=== PATIENT | female | born 1990 | race Two or more races ===

== ENCOUNTER 2025-04-12 03:57 | Inpatient (IN) | payer MEDICAID, OTHER ==
[2025-04-12] VITALS (7 sets, daily range): BP systolic 127–155; BP diastolic 76–94; PULSE 60–66; RESP 16–20; TEMP 97.6–98.8; O2SAT 93–100
[~2025-04-12] VITALS: Ht 160 cm; Wt 99.0 kg
--- NOTE | 2025-04-12 04:46 | ED.PDOC ---
GI ASSESSMENT HPI Comments 34-year-old female with a history of self-diagnosed gastritis brought in by family complaining of epigastric burning pain for the past 2 months, worse since 2:00 a.m. today, associated with nausea and vomiting. She denies any diarrhea, constipation or urinary symptoms. Patient states she has been taking omeprazole without relief. Chief Complaint: Abdominal Pain Time Seen by MD: 04:45 Reviewed Notes: Nurses Notes Allergies: Coded Allergies: NO KNOWN ALLERGIES (Unverified , 04/12/25) Home Meds Active Scripts Hydrocodone-Acetaminophen (Hydrocodone Bitartrate/AC 5-325 mg) 1 Tab Tab, 1 TAB PO Q6HP PRN, #20 TAB Prov:STANLEY BENNETT MD 04/12/25 Ondansetron Odt 4MG Tab (ZOFRAN PO) 4 Mg Tb, 4 MG PO TID PRN, #30 TAB ODT TAB-DISSOLVE IN MOUTH, THEN SWALLOW Prov:STANLEY BENNETT MD 04/12/25 Omeprazole Magnesium (Omeprazole) 20 Mg Tab, 20 MG PO DAILY, #30 TAB Prov:STANLEY BENNETT MD 04/12/25 Information Source: Patient Mode of Arrival: Ambulatory Timing: Months Duration: Intermittent Quality: Burning, Sharp Vomitus: Watery Stool: Normal Severity: Moderate Recent: None Recent Hx of: None Pain Location: Epigastric Associated sign and symptoms: Nausea, Vomiting, Abdominal Pain Past Medical History Past Medical History (Other): Possible gastritis Surgical History: Denies all surgeries [employer] INSURANCE History: Denies all [employer]URANCE Hx Family History Family History: Reviewed,noncontributory to illness Social History Smoker: Non-Smoker Alcohol: Denies ETOH Use Drugs: Denies Drug Use Lives In: Home Constitutional: denies: chills, diaphoresis, fatigue, fever, malaise, sweats, weakness, others EENTM: denies: blurred vision, double vision, ear bleeding, ear discharge, ear drainage, ear pain, ear ringing, eye pain, eye redness, hearing loss, mouth pain, mouth swelling, nasal discharge, nose bleeding, nose congestion, nose pain, photophobia, tearing, throat pain, throat swelling, voice changes, others Respiratory: denies: cough, hemoptysis, orthopnea, SOB at rest, shortness of breath, SOB with excertion, stridor, wheezing, others Cardiovascular: denies: chest pain, dizzy spells, diaphoresis, Dyspnea on exertion, edema, irregular heart beat, left arm pain, lightheadedness, palpitations, PND, syncope, others Gastrointestinal: reports: abdominal pain, nausea, vomiting; denies: abdomen distended, blood streaked bowels, constipated, diarrhea, dysphagia, difficulty swallowing, hematemesis, melena, poor appetite, poor fluid intake, rectal bleeding, rectal pain, others Genitourinary: denies: abnormal vagina bleeding, burning, dyspareunia, dysuria, flank pain, frequency, hematuria, incontinence, pain, , vagina discharge, urgency, others Neurological: denies: dizziness, fainting, headache, left sided numbness, left sided weakness, numbness, paresthesia, pre-existing deficit, right sided numbness, right sided weakness, seizure, speech problems, tingling, tremors, weakness, others Musculoskeletal: denies: back pain, gout, joint pain, joint swelling, muscle pain, muscle stiffness, neck pain, others Integumetry: denies: bruises, change in color, change in hair/nails, dryness, laceration, lesions, lumps, rash, wounds, others Allergic/Immunocompromised: denies: Difficulty Healing, Frequent Infections, Hives, Itching, others Hematologic/Lymphatic: denies: anemia, blood clots, easy bleeding, easy bruising, swollen glands, others Endocrine: denies: excessive hunger, excessive sweating, excessive thirst, excessive urination, flushing, intolerance to cold, intolerance to heat, unexplained weight gain, unexplained weight loss, others Psychiatric: denies: anxiety, bipolar disorder, depression, hopeless, panic disorder, schizophrenia, sleepless, suicidal, others Physical Exam General Appearance: Moderate Distress, Obese HEENT: Other (Pupils and face symmetric. Moist mucous membranes.) Neck: Full Range of Motion, Normal Inspection Respiratory: Lungs Clear, No Accessory Muscle Use, No Respiratory Distress, Normal Breath Sounds Cardiovascular: No Edema, No JVD, Regular Rate/Rhythm Breast Exam: Deferred Gastrointestinal: Epigastric, Soft, Tenderness Genitalia: Deferred Pelvic: Deferred Rectal: Deferred Extremities: Normal inspection, Normal range of motion, Non-tender, No pedal edema Neurologic: Alert (Oriented x4), Normal Affect, Normal Mood, Other (Ambulatory) Cerebellar Function: NOT DONE Reflexes: NOT DONE Skin: Dry, Normal Color, Warm Lymphatic: NOT DONE Was a procedure done? Was a procedure done?: No GI differential Dx Differential Diagnosis: Cholecystitis, Constipation, Diverticular disease, Gastritis/PUD, Gastroenteritis, Pancreatitis, UTI, Urolithiasis, Dehydration, Electrolyte Imbalance, Food Poisoning, , Bacterial, Viral, Anemia, Stress Ulcer, Kidney Stone X-Ray, Labs, Meds, VS Vital Signs Date Time Temp Pulse Resp B/P (MAP) Pulse Ox O2 Delivery O2 Flow Rate FiO2 04/12/25 06:03 175/87 04/12/25 06:00 60 22 175/87 (116) 100 04/12/25 05:08 92 24 126/78 04/12/25 04:25 98.0 70 22 150/69 (96) 99 98.0 Lab Test 04/12/25 04:29 04/12/25 04:15 Range/Units POC Glucose 168 H 70-106 mg/dl White Blood Count 13.3 H 4.4-10.8 10^3/uL Red Blood Count 4.71 4.0-5.20 10^6/uL Hemoglobin 14.3 12.2-16.2 g/dL Hematocrit 42.2 36.0-46.0 % Mean Corpuscular Volume 89.5 80.0-100.0 fL Mean Corpuscular Hemoglobin 30.5 28.0-32.0 pg Mean Corpuscular Hemoglobin Concent 34.0 32.0-36.0 g/dL Red Cell Distribution Width 13.0 11.8-14.3 % Platelet Count 361 140-450 10^3/uL Mean Platelet Volume 9.3 6.9-10.8 fL Neutrophils (%) (Auto) 63.6 37.0-80.0 % Lymphocytes (%) (Auto) 29.0 10.0-50.0 % Monocytes (%) (Auto) 6.6 0.0-12.0 % Eosinophils (%) (Auto) 0.5 0.0-7.0 % Basophils (%) (Auto) 0.3 0.0-2.0 % Neutrophils # (Auto) 8.4 1.6-8.6 10 ^3/uL Lymphocytes # (Auto) 3.8 0.4-5.4 10 ^3/uL Monocytes # (Auto) 0.9 0-1.3 10 ^3/uL Eosinophils # (Auto) 0.1 0-0.8 10 ^3/uL Basophils # (Auto) 0 0-0.2 10 ^3/uL Nucleated Red Blood Cells 0.1 % Sodium Level 141 136-145 mmol/L Potassium Level 3.0 L 3.5-5.1 mmol/L Chloride Level 106 98-107 mmol/L Carbon Dioxide Level 18 L 20-31 mmol/L Anion Gap 17 H 5-15 Blood Urea Nitrogen 8 L 9-23 mg/dL Creatinine 0.66 0.550-1.02 mg/dL Glomerular Filtration Rate Calc 117 >90 mL/min BUN/Creatinine Ratio 12.1 10.0-20.0 Serum Glucose 152 H 74-106 mg/dL Calcium Level 9.0 8.7-10.4 mg/dL Total Bilirubin 0.5 0.2-1.0 mg/dL Aspartate Amino Transferase (AST) 26 13-40 U/L Alanine Aminotransferase (ALT) 40 7-40 U/L Alkaline Phosphatase 87 46-116 U/L Total Protein 7.7 5.7-8.2 g/dL Albumin 4.3 3.2-4.8 g/dL Lipase 36 12-53 U/L Current Medications Medications (Trade) Dose Ordered Sig/Baudilio Route Start Time Stop Time Status Last Admin Sodium Chloride 2,000 ml @ 1,000 mls/hr Q2H ONCE IV 04/12/25 04:30 04/12/25 06:29 DC 04/12/25 05:09 Ondansetron HCl (Zofran) 4 mg ONCE ONCE IV 04/12/25 04:30 04/12/25 04:31 DC 04/12/25 05:08 Morphine Sulfate 4 mg ONCE ONCE IV 04/12/25 04:30 04/12/25 04:31 DC 04/12/25 05:08 Pantoprazole Sodium (Protonix) 40 mg ONCE ONCE IV 04/12/25 04:30 04/12/25 04:31 DC 04/12/25 05:08 Fentanyl Citrate 25 mcg ONCE ONCE IV 04/12/25 05:45 04/12/25 05:46 DC 04/12/25 06:03 PROCEDURE(s): ABPL - CT AB PEL WO CON-NO ORAL OR IV REASON: abd pain ORDER NUMBER(s): [id number], ACCESSION NUMBER(s): [id number] Exam: CT CT AB PEL WO CON-NO ORAL OR IV History: abd pain Comparison Study: None Technique: Multidetector spiral CT of the abdomen was performed from lung bases to pubic symphysis. Imaging was performed without IV contrast. Axial, coronal and sagittal multiplanar reformats were obtained from the axial data set by the technologist. Radiation Dose : 1. Abdomen/Pelvis: CTDIvol 24 mGy, DLP 1516 mGy*cm. Findings: Evaluation of solid organs is limited due to lack of intravenous contrast use. Lung Bases: No acute or significant lung base finding. Normal heart size. No pleural or pericardial effusion. Liver: Hepatic steatosis. Hepatomegaly. Gallbladder and Biliary Tree: Cholelithiasis noted without secondary findings of cholecystitis or biliary obstruction. Spleen: Unremarkable Pancreas: The pancreas is grossly normal in appearance. Adrenal Glands: Unremarkable Kidneys: No hydronephrosis. Bilateral punctate nonobstructing renal stones measuring up to 0.3 cm in the left lower pole. Bladder: Grossly unremarkable for degree of distention. Bowel: The stomach is grossly normal in appearance. Mild diffuse colonic bowel wall thickening. The appendix is not visualized; however, no secondary findings of acute appendicitis identified. Ascites: Absent Lymphadenopathy: No mesenteric, retroperitoneal or periportal lymphadenopathy. Abdominal Wall and Mesentery: Unremarkable. Vasculature: The visualized abdominal aorta is normal in size and caliber. Evaluation of abdominal and pelvic vessels is limited due to lack of intravenous contrast. Pelvic Organs: Intrauterine device in satisfactory position. Musculoskeletal: No aggressive focal bony lesions, acute fractures or dislocation. IMPRESSION: Cholelithiasis noted without secondary findings of cholecystitis or biliary obstruction.No hydronephrosis. Bilateral punctate nonobstructing renal stones measuring up to 0.3 cm in the left lower pole. Hepatic steatosis and hepatomegaly. Mild diffuse colonic bowel wall thickening. This may be related to underdistention of bowel loops versus mild colitis. Radiation optimization: All CT scans at this facility use at least one of these dose optimization techniques: automated exposure control mA and/or kV adjustment per patient size (includes targeted exams where dose is matched to clinical indication) or iterative reconstruction. X-Ray, Labs, Meds, VS Comment 34-year-old female with self diagnosed history of gastritis complaining of epigastric pain, nausea and vomiting Vitals remarkable for respiratory rate 22, BP 150/69 Exam remarkable for epigastric tenderness to palpation and moderate distress Rhythm strip independently interpreted by me: Sinus rhythm, rate 70, no ectopy. CT abdomen and pelvis IMPRESSION: Cholelithiasis noted without secondary findings of cholecystitis or biliary obstruction.No hydronephrosis. Bilateral punctate nonobstructing renal stones measuring up to 0.3 cm in the left lower pole. Hepatic steatosis and hepatomegaly. Mild diffuse colonic bowel wall thickening. This may be related to un derdistention of bowel loops versus mild colitis. CBC remarkable for WBC 13.3, CMP remarkable for potassium 3, CO2 18, UA Patient treated with the following in the ED: 2 L 0.9 normal saline IV bolus, morphine 4 mg IV, Zofran 4 mg IV, Protonix 40 mg IV, fentanyl 25 mcg IV, Zosyn 4.5 g IV On re-evaluation, patient states pain had not improved after 4 of morphine IV. Fentanyl IV was ordered. Vitals were stable. Plan is to admit the patient for pain control and IV antibiotics. Time of 1ST Reevaluation: 04:42 Reevaluation 1ST: Unchanged Patient Education/Counseling: Diagnosis, Treatment Family Education/Counseling: Diagnosis, Treatment SEPSIS Sepsis Screen SEPSIS EXCLUSION NOTE: Sepsis Exclusion Note: Patient presents with SIRS criteria, but the SIRS response is attributed to [severe pain ], not a suspected infection. Sepsis bundle is not initiated at this time, due to this reason. Further management will focus on the treatment of the above condition (s). Physician Orders Urinalysis (04/12/25 04:09) Test, Urine (04/12/25 04:09) Ct Ab Pel Wo Con-No Oral Or Iv (04/12/25 04:09) Piperacillin-Tazo 4.5gm (Zosyn 4.5gm/100 (04/12/25 07:00) Potassium Effervesent Tab (Klor-Con/Ef) (04/12/25 07:00) Vital Signs Date Time Temp Pulse Resp B/P (MAP) Pulse Ox O2 Delivery O2 Flow Rate FiO2 04/12/25 06:03 175/87 04/12/25 06:00 60 22 175/87 (116) 100 04/12/25 05:08 92 24 126/78 04/12/25 04:25 98.0 70 22 150/69 (96) 99 98.0 Laboratory Tests Test 04/12/25 04:15 White Blood Count 13.3 10^3/uL (4.4-10.8) H Medications Medications Dose Ordered Sig/Baudilio Route Start Time Stop Time Status Last Admin Dose Admin Fentanyl Citrate 25 mcg ONCE ONCE IV 04/12/25 05:45 04/12/25 05:46 DC 04/12/25 06:03 Morphine Sulfate 4 mg ONCE ONCE IV 04/12/25 04:30 04/12/25 04:31 DC 04/12/25 05:08 Ondansetron HCl 4 mg ONCE ONCE IV 04/12/25 04:30 04/12/25 04:31 DC 04/12/25 05:08 Pantoprazole Sodium 40 mg ONCE ONCE IV 04/12/25 04:30 04/12/25 04:31 DC 04/12/25 05:08 Sodium Chloride 2,000 ml @ 1,000 mls/hr Q2H ONCE IV 04/12/25 04:30 04/12/25 06:29 DC 04/12/25 05:09 Departure 1 Departure Time of Disposition: 06:00 Impression: Primary Impression: Abdominal pain Additional Impression: Colitis Disposition: ADMITTED INPATIENT Admit to: Med Surg Condition: Guarded Referrals: CARLIE TEJEDA MD Additional Instructions: Your blood tests were unremarkable. Your CT scan was unremarkable. I have pre scribed medication for your symptoms. Follow-up with your primary doctor in 1-2 days for referral to a chemical laboratory scientist for further evaluation of your symptoms. Alternatively, follow-up directly with Dr. Crystal Tejeda. e-Prescriptions Hydrocodone-Acetaminophen (Hydrocodone Bitartrate/AC 5-325 mg) 1 Tab Tab 1 TAB PO Q6HP PRN, #20 TAB Prov: STANLEY BENNETT MD 04/12/25 Ondansetron Odt 4MG Tab (ZOFRAN PO) 4 Mg Tb 4 MG PO TID PRN, #30 TAB ODT TAB-DISSOLVE IN MOUTH, THEN SWALLOW Prov: STANLEY BENNETT MD 04/12/25 Omeprazole Magnesium (Omeprazole) 20 Mg Tab 20 MG PO DAILY, #30 TAB Prov: STANLEY BENNETT MD 04/12/25 Discharged With: Spouse Critical Care Note Critical Care Time?: No Stability Stability form required: No Heart Score Heart Score: Heart Score Response (Comments) Value History N/A 0 EKG N/A 0 Age N/A 0 Risk Factors N/A 0 Troponin N/A 0 Total 0 I personally scribed for STANLEY BENNETT MD ([email or web address]) on 04/12/25 at 04:46. Electronically submitted by Alexander Britt ([facility]). STANLEY BENNETT MD Apr 12, 2025 04:46
[2025-04-12 04:53] LABS: Albumin 4.3 g/dL (3.2-4.8); Alkaline Phosphatase 87 U/L (46-116); Anion Gap 17 (5-15); BUN/Creatinine Ratio 12.1 (10.0-20.0); Calcium 9.0 mg/dL (8.7-10.4); Chloride 106 mmol/L (98-107); Lipase 36 U/L (12-53); Sodium 141 mmol/L (136-145); Total Protein 7.7 g/dL (5.7-8.2)
[2025-04-12 04:54] LABS: Bilirubin, Total 0.5 mg/dL (0.2-1.0)
[2025-04-12 05:03] LABS: Alanine Aminotransferase 40 U/L (7-40); Blood Urea Nitrogen 8 mg/dL (9-23); Carbon Dioxide 18 mmol/L (20-31); Glucose 152 mg/dL (74-106); Potassium 3.0 mmol/L (3.5-5.1)
[2025-04-12] MEDS: ONDANSETRON HCL 4 MG/2 ML VIAL IV ONE (05:08)
[2025-04-12] MEDS: PANTOPRAZOLE 40 MG/10 ML VIAL INJ IV ONE (05:08)
[2025-04-12] MEDS: MORPHINE SULFATE 4 MG/ML SYR/VIAL IV ONE (05:08)
[2025-04-12] MEDS: SODIUM CHLORIDE 0.9% 2,000 ML IV ONE (05:09)
[2025-04-12 05:42] LABS: Hematocrit 42.2 % (36.0-46.0); Hemoglobin 14.3 g/dL (12.2-16.2); Mean Corpuscular Hemoglobin 30.5 pg (28.0-32.0); Mean Corpuscular Volume 89.5 fL (80.0-100.0); Nucleated Red Blood Cells % 0.1 %
[2025-04-12] MEDS ORDERED: OMEP-434 PO (05:52)
[2025-04-12] MEDS ORDERED: HYDR-4902 PO (05:52)
[2025-04-12] MEDS ORDERED: ZOFR4T PO (05:52)
[2025-04-12] MEDS: fentaNYL CITRATE 100 MCG/2 ML VL IV ONE (06:03)
--- NOTE | 2025-04-12 06:13 | DVH ---
Exam: CT CT AB PEL WO CON-NO ORAL OR IV History: abd pain Comparison Study: None Technique: Multidetector spiral CT of the abdomen was performed from lung bases to pubic symphysis. I maging was performed without IV contrast. Axial, coronal and sagittal multiplanar reformats were obta ined from the axial data set by the technologist. Radiation Dose : 1. Abdomen/Pelvis: CTDIvol 24 mGy, DLP 1516 mGy*cm. Findings: Evaluation of solid organs is limited due to lack of intravenous contrast use. Lung Bases: No acute or significant lung base finding. Normal heart size. No pleural or pericardial effusion. Liver: Hepatic steatosis. Hepatomegaly. Gallbladder and Biliary Tree: Cholelithiasis noted without secondary findings of cholecystitis or sarita iary obstruction. Spleen: Unremarkable Pancreas: The pancreas is grossly normal in appearance. Adrenal Glands: Unremarkable Kidneys: No hydronephrosis. Bilateral punctate nonobstructing renal stones measuring up to 0.3 cm in the left lower pole. Bladder: Grossly unremarkable for degree of distention. Bowel: The stomach is grossly normal in appearance. Mild diffuse colonic bowel wall thickening. The a ppendix is not visualized; however, no secondary findings of acute appendicitis identified. Ascites: Absent Lymphadenopathy: No mesenteric, retroperitoneal or periportal lymphadenopathy. Abdominal Wall and Mesentery: Unremarkable. Vasculature: The visualized abdominal aorta is normal in size and caliber. Evaluation of abdominal a nd pelvic vessels is limited due to lack of intravenous contrast. Pelvic Organs: Intrauterine device in satisfactory position. Musculoskeletal: No aggressive focal bony lesions, acute fractures or dislocation. IMPRESSION: Cholelithiasis noted without secondary findings of cholecystitis or biliary obstruction.No hydronephr osis. Bilateral punctate nonobstructing renal stones measuring up to 0.3 cm in the left lower pole. Hepatic steatosis and hepatomegaly. Mild diffuse colonic bowel wall thickening. This may be related to underdistention of bowel loops ve rsus mild colitis. Radiation optimization: All CT scans at this facility use at least one of these dose optimization naz hniques: automated exposure control mA and/or kV adjustment per patient size (includes targeted exam s where dose is matched to clinical indication) or iterative reconstruction.
[2025-04-12] MEDS: POTASSIUM EFFERVESENT TAB 25 MEQ PO ONE (07:00)
[2025-04-12] MEDS ORDERED: PIPERACILLIN-TAZO 4.5GM 100 ML IV ONE ×2 (07:00→07:15)
[2025-04-12] MEDS ORDERED: DOCUSATE SOD 100 MG CAP PO PRN (08:45)
[2025-04-12 09:02] LABS: Urine Protein, UAD Negative (Negative)
--- NOTE | 2025-04-12 09:25 | DVHHP2 ---
History of Present Illness Reason for Visit: Acute abdominal pain History of Present Illness The patient is a 34-year-old female with past medical history of gastritis who presented to [facility] ED with complaint of acute abdominal pain. Patient reports she has been experiencing epigastric abdominal pain, associated burning sensation for the past 2 months, nausea, vomiting, getting worse today that prompted this visit. Patient was seen and evaluated in the ED, laboratory data shows WBC 13.3, platelets 361, sodium 141, potassium 3.0, BUN 8, creatinine 0.66, glucose 152, calcium 9.0, lipase 36, blood pressure 159/92, heart rate 56, temperature 97.9 F, O2 saturation 99% on room. Abdomen/pelvis CT revealing cholelithiasis noted without secondary findings of cholecystitis or biliary obstruction, no hydronephrosis; noted bilateral punctate nonobstructing renal stones measuring up to 0.3 cm in the left lower pole, hepatic steatosis and hepatomegaly, mild diffuse colonic bowel wall thickening, this may be related to underdistention of bowel loops versus mild colitis. Patient was started on IV antibiotic regimen Flagyl, please see medication orders section in the computer. On my assessment, patient denies chest pain, no dizziness, no headache, no diaphoresis, no shortness of breath, no nausea, no vomiting, no fever, no chills. Patient was admitted for further evaluation and medical management. Past Medical History Gastritis Past Surgical History Denies all surgeries Family History Reviewed, noncontributory to the management of this case. Past Social History The patient lives at home, denies smoking, alcohol or illicit drugs abuse. Review of Systems Constitutional: No: Fever, Chills, Sweats, Weakness, Malaise, Other Eyes: No: Pain, Vision change, Conjunctivae inflammation, Eyelid inflammation, Other, Redness ENT: No: Ear pain, Ear discharge, Nose pain, Nose discharge, Nose congestion, Mouth pain, Mouth swelling, Throat pain, Throat swelling, Other Respiratory: No: Cough, Dry, Shortness of breath, SOB with excertion, Wheezing, Hemoptysis, Pleuritic Pain, Sputum, Wheezing, Other Cardiovascular: No: Chest Pain, Palpitations, Orthopnea, Paroxysmal Noc. Dyspnea, Edema, Lt Headedness, Other Gastrointestinal: Nausea, Vomiting, Abdominal Pain; No: Diarrhea, Constipation, Melena, Hematochezia, Other Genitourinary: No Dysuria, No Frequency, No Incontinence, No Hematuria, No Retention, No Other Musculoskeletal: No: other, neck pain, shoulder pain, arm pain, back pain, hand pain, leg pain, foot pain Skin: No: Rash, Lesions, Jaundice, Bruising, Other Neurological: No: Weakness, Numbness, Incoordination, Change in speech, Confusion, Seizures, Other Allergies: Coded Allergies: NO KNOWN ALLERGIES (Unverified , 04/12/25) Medications Current Medications Medications Dose Ordered Sig/Baudilio Route Start Time Stop Time Status Last Admin Dose Admin Pantoprazole Sodium 40 mg DAILY IV 04/12/25 10:00 UNV Ceftriaxone Sodium 50 ml @ 100 mls/hr DAILY@09 IV 04/12/25 09:00 UNV Metronidazole 100 ml @ 100 mls/hr Q8HR IV 04/12/25 14:00 UNV Sodium Chloride 10 ml Q8HR IV 04/12/25 14:00 UNV Acetaminophen/ Hydrocodone Bitart 1 tab Q4HP PRN PO 04/12/25 08:45 UNV Ondansetron HCl 4 mg Q4HP PRN IV 04/12/25 08:45 UNV Docusate Sodium 100 mg BIDPRN PRN PO 04/12/25 08:45 UNV Acetaminophen 650 mg Q6HP PRN PO 04/12/25 08:45 UNV Morphine Sulfate 2 mg Q4HPRN PRN IV 04/12/25 08:45 UNV Exam Vital Signs Vital Signs Date Time Temp Pulse Resp B/P (MAP) Pulse Ox O2 Delivery O2 Flow Rate FiO2 04/12/25 07:08 97.9 56 12 159/92 (114) 100 97.9 General Appearance: Alert, Oriented X3, Cooperative, No acute distress HEENT: Atraumatic, PERRLA, EOMI, Mucous membr. moist/pink Respiratory: Normal air movement Cardiovascular: Regular rate, Normal S1, Normal S2, No murmurs Abdominal: Normal bowel sounds, Soft, No tenderness, No hepatospenomegaly, No masses Extremities: No clubbing, No cyanosis, No edema, Normal pulses, No tenderness/swelling Skin: No rashes, No breakdown, No significant lesion Neuro: Normal gait, Normal speech, Strength at 5/5 X4 ext, Normal tone, Sensation intact, Cranial nerves 3-12 NL, Reflexes 2+ Psych/Mental Status: Mental status NL, Mood NL Labs/Xrays Labs Test 04/12/25 07:25 04/12/25 04:29 04/12/25 04:15 Range/Units Urine Color Colorless Yellow Urine Clarity Clear Clear Urine pH 7.0 5.0-9.0 Urine Specific [place] 1.013 1.001-1.035 Urine Protein Negative Negative Urine Ketones 3+ H Negative Urine Blood Negative Negative /uL Urine Nitrite Negative Negative Urine Bilirubin Negative Negative Urine Urobilinogen Normal Negative mg/dL Urine Leukocyte Esterase Negative Negative /uL Urine RBC 3 0 - 4 /hpf Urine Microscopic WBC 3 0-5 /HPF Urine Squamous Epithelial Cells Few <5 /hpf Urine Bacteria None seen None Seen /hpf Urine Glucose 3+ H Normal mg/dL Urine Test Negative Negative POC Glucose 168 H 70-106 mg/dl White Blood Count 13.3 H 4.4-10.8 10^3/uL Red Blood Count 4.71 4.0-5.20 10^6/uL Hemoglobin 14.3 12.2-16.2 g/dL Hematocrit 42.2 36.0-46.0 % Mean Corpuscular Volume 89.5 80.0-100.0 fL Mean Corpuscular Hemoglobin 30.5 28.0-32.0 pg Mean Corpuscular Hemoglobin Concent 34.0 32.0-36.0 g/dL Red Cell Distribution Width 13.0 11.8-14.3 % Platelet Count 361 140-450 10^3/uL Mean Platelet Volume 9.3 6.9-10.8 fL Neutrophils (%) (Auto) 63.6 37.0-80.0 % Lymphocytes (%) (Auto) 29.0 10.0-50.0 % Monocytes (%) (Auto) 6.6 0.0-12.0 % Eosinophils (%) (Auto) 0.5 0.0-7.0 % Basophils (%) (Auto) 0.3 0.0-2.0 % Neutrophils # (Auto) 8.4 1.6-8.6 10 ^3/uL Lymphocytes # (Auto) 3.8 0.4-5.4 10 ^3/uL Monocytes # (Auto) 0.9 0-1.3 10 ^3/uL Eosinophils # (Auto) 0.1 0-0.8 10 ^3/uL Basophils # (Auto) 0 0-0.2 10 ^3/uL Nucleated Red Blood Cells 0.1 % Sodium Level 141 136-145 mmol/L Potassium Level 3.0 L 3.5-5.1 mmol/L Chloride Level 106 98-107 mmol/L Carbon Dioxide Level 18 L 20-31 mmol/L Anion Gap 17 H 5-15 Blood Urea Nitrogen 8 L 9-23 mg/dL Creatinine 0.66 0.550-1.02 mg/dL Glomerular Filtration Rate Calc 117 >90 mL/min BUN/Creatinine Ratio 12.1 10.0-20.0 Serum Glucose 152 H 74-106 mg/dL Hemoglobin A1c 5.3 <5.7 % A1C Calcium Level 9.0 8.7-10.4 mg/dL Total Bilirubin 0.5 0.2-1.0 mg/dL Aspartate Amino Transferase (AST) 26 13-40 U/L Alanine Aminotransferase (ALT) 40 7-40 U/L Alkaline Phosphatase 87 46-116 U/L Total Protein 7.7 5.7-8.2 g/dL Albumin 4.3 3.2-4.8 g/dL Lipase 36 12-53 U/L PATIENT: JEAN JONESACCT: [id number] UNIT: [id number] : 1990 LOC: ER ROOM / BED: / AGE / SEX: 34 / F ADM STATUS: REG ER SERVICE [id number] ORDERING PHYSICIAN: STANLEY BENNETT MD PROCEDURE(s): ABPL - CT AB PEL WO CON-NO ORAL OR IV REASON: abd pain ORDER NUMBER(s): [id number], ACCESSION NUMBER(s): [id number] Exam: CT CT AB PEL WO CON-NO ORAL OR IV History: abd pain Comparison Study: None Technique: Multidetector spiral CT of the abdomen was performed from lung bases to pubic symphysis. Imaging was performed without IV contrast. Axial, coronal and sagittal multiplanar reformats were obtained from the axial data set by the technologist. Radiation Dose: 1. Abdomen/Pelvis: CTDIvol 24 mGy, DLP 1516 mGy*cm. Findings: Evaluation of solid organs is limited due to lack of intravenous contrast use. Lung Bases: No acute or significant lung base finding. Normal heart size. No pleural or pericardial effusion. Liver: Hepatic steatosis. Hepatomegaly. Gallbladder and Biliary Tree: Cholelithiasis noted without secondary findings of cholecystitis or biliary obstruction. Spleen: Unremarkable Pancreas: The pancreas is grossly normal in appearance. Adrenal Glands: Unremarkable Kidneys: No hydronephrosis. Bilateral punctate nonobstructing renal stones measuring up to 0.3 cm in the left lower pole. Bladder: Grossly unremarkable for degree of distention. Bowel: The stomach is grossly normal in appearance. Mild diffuse colonic bowel wall thickening. The appendix is not visualized; however, no secondary findings of acute appendicitis identified. Ascites: Absent Lymphadenopathy: No mesenteric, retroperitoneal or periportal lymphadenopathy. Abdominal Wall and Mesentery: Unremarkable. Vasculature: The visualized abdominal aorta is normal in size and caliber. Evaluation of abdominal and pelvic vessels is limited due to lack of intravenous contrast. Pelvic Organs: Intrauterine device in satisfactory position. Musculoskeletal: No aggressive focal bony lesions, acute fractures or dislocation. IMPRESSION: Cholelithiasis noted without secondary findings of cholecystitis or biliary obstruction.No hydronephrosis. Bilateral punctate nonobstructing renal stones me asuring up to 0.3 cm in the left lower pole. Hepatic steatosis and hepatomegaly. Mild diffuse colonic bowel wall thickening. This may be related to underdistention of bowel loops versus mild colitis. Assessment/Plan Assessment/Plan Acute abdominal pain Colitis Nausea and vomiting Hyperglycemia Hypokalemia Leukocytosis, unspecified Plan 1. Admit to med surge unit 2. Breathing treatment 3. Pain control management 4. IV antibiotic management 5. Management of fluids and electrolytes 6. Consultation for hospitalist 7. Diagnostic test abdomen/pelvis CT 8. DVT prophylaxis on SCDs 9. Repeat labs CBC, CMP in a.m. 10.Home medication reviewed and reconciled 11. Continue with current medical management 12. Treatment plan discussed with patient and RN. Patient verbalized understanding. Plan discussed with: Patient, Other (RN) My Orders Orders - GIL DE PAZ DNP Procedure Category Date Status Time Pantoprazole [facility] 04/12/25 Logged (Protonix) 10:00 Ceftriaxone 1gm/50ml [facility] 04/12/25 Logged D5w (Rocephin) 09:[address] [facility] 04/12/25 Logged 500mg/100ml (Flagyl 14:00 Allergies ASAEL 04/12/25 In Process 08:45 Code Status CODE 04/12/25 Transmitted 08:45 Sodium Chloride Lock PHA 04/12/25 Logged (Saline Lock Ns) 14:00 Oxygen Per Hour RT 04/12/25 Transmitted 08:45 Hydrocodone-Acet PHA 04/12/25 Logged 5/325mg Tab ([place] 08:45 Ondansetron Hcl PHA 04/12/25 Logged (Zofran) 08:45 Docusate Sodium PHA 04/12/25 Logged Capsule (Colace 08:45 Complete Blood Count LAB 04/13/25 Verified 04:00 Comprehensive LAB 04/13/25 Verified Metabolic Panel 04:00 Condition: Serious ASAEL 04/12/25 In Process 08:45 Acetaminophen Tablet PHA 04/12/25 Logged (Tylenol Tablet) 08:45 Clear Liq Diet DIET 04/12/25 Transmitted Breakfast Bedrest With Bathroom ASAEL 04/12/25 In Process Privileg 08:45 Morphine Sulfate PHA 04/12/25 Logged Injection 08:45 Sequential ASAEL 04/12/25 In Process Compression Device Problem List: (1) Acute abdominal pain (2) Colitis (3) Nausea and vomiting (4) Hyperglycemia (5) Hypokalemia (6) Leukocytosis, unspecified Date of Service: Apr 12, 2025 Billing Provider: GIL DE PAZ DNP Common Visit Codes: [id number] INP/OBS CARE (HIGH) GIL DE PAZ DNP Apr 12, 2025 09:25
[2025-04-12] MEDS ORDERED: MORPHINE SULFATE INJ 2 MG/ml SYRG IV PRN (09:30)
[2025-04-12] MEDS ORDERED: NITROGLYCERIN 0.4 MG SL TAB SL PRN (09:30)
[2025-04-12] MEDS: MORPHINE SULFATE INJ 2 MG/ml SYRG IV PRN (09:57)
[2025-04-12] MEDS: ONDANSETRON HCL 4 MG/2 ML VIAL IV PRN (09:57)
[2025-04-12] MEDS: PANTOPRAZOLE 40 MG/10 ML VIAL INJ IV SCH (11:50)
[2025-04-12] MEDS: cefTRIAXone 1GM/50ML D5W 50 ML IV SCH (11:50)
[2025-04-12] MEDS: HYDROcodone-ACET 5/325MG TAB PO PRN (12:28)
[2025-04-12] MEDS: SODIUM CHLOR 0.9% PF (SALINE LOCK) 10ML VIAL/SYR IV SCH (14:09)
[2025-04-12] MEDS: KETOROLAC TROMETH 30 MG/ML 1ML VIAL IV ONE (14:12)
[2025-04-12] MEDS: LIDOCAINE VISCOUS 2% 15ML UD PO ONE (14:12)
[2025-04-12] MEDS: MAALOX PLUS or MAALOX 30 ML PO ONE (14:12)
[2025-04-12 14:41] LABS: Albumin 4.7 g/dL (3.2-4.8); Alkaline Phosphatase 85 U/L (46-116); Anion Gap 14 (5-15); BUN/Creatinine Ratio 7.2 (10.0-20.0); Bilirubin, Total 0.6 mg/dL (0.2-1.0); Calcium 9.6 mg/dL (8.7-10.4); Chloride 107 mmol/L (98-107); Potassium 3.6 mmol/L (3.5-5.1); Sodium 139 mmol/L (136-145); Total Protein 7.8 g/dL (5.7-8.2)
[2025-04-12 14:51] LABS: Alanine Aminotransferase 40 U/L (7-40); Blood Urea Nitrogen 5 mg/dL (9-23); Carbon Dioxide 18 mmol/L (20-31); Glucose 128 mg/dL (74-106)
[2025-04-12] MEDS: PIPERACILLIN-TAZOB 3.375GM 100 ML IV ONE (15:49)
[2025-04-12] MEDS ORDERED: PIPERACILLIN-TAZOB 3.375GM 100 ML IV SCH (18:00)
[2025-04-12] MEDS: PIPERACILLIN-TAZOB 3.375GM 100 ML IV SCH (21:19)
[2025-04-13] VITALS (8 sets, daily range): BP systolic 134–163; BP diastolic 89–96; PULSE 59–79; RESP 16–20; TEMP 98.8–100.2; O2SAT 97–99
[2025-04-13 06:10] LABS: Hematocrit 39.7 % (36.0-46.0); Hemoglobin 13.8 g/dL (12.2-16.2); Mean Corpuscular Hemoglobin 30.7 pg (28.0-32.0); Mean Corpuscular Volume 88.5 fL (80.0-100.0); Nucleated Red Blood Cells % 0.0 %
[2025-04-13 06:28] LABS: Albumin 4.2 g/dL (3.2-4.8); Alkaline Phosphatase 83 U/L (46-116); Anion Gap 11 (5-15); BUN/Creatinine Ratio 8.1 (10.0-20.0); Calcium 9.2 mg/dL (8.7-10.4); Carbon Dioxide 22 mmol/L (20-31); Sodium 141 mmol/L (136-145); Total Protein 7.1 g/dL (5.7-8.2)
[2025-04-13 06:29] LABS: Bilirubin, Total 0.8 mg/dL (0.2-1.0)
[2025-04-13 06:30] LABS: Alanine Aminotransferase 48 U/L (7-40); Blood Urea Nitrogen 6 mg/dL (9-23); Chloride 108 mmol/L (98-107); Glucose 143 mg/dL (74-106); Potassium 3.1 mmol/L (3.5-5.1)
--- NOTE | 2025-04-13 14:42 | DVHPN2 ---
Reviewed: Care Plan, H&P, Labs, Medications, Previous Orders, Radiology Changes from previous H/P or p: No Changes General: Per HPI Eyes: No Pain, No Vision change, No Conjunctivae inflammation, No Eyelid inflammation, No Other, No Redness ENT: No Ear pain, No Ear discharge, No Nose pain, No Nose discharge, No Nose congestion, No Mouth pain, No Mouth swelling, No Throat pain, No Throat swelling, No Other Cardiovascular: No Chest Pain, No Palpitations, No Orthopnea, No Paroxysmal Noc. Dyspnea, No Edema, No Lt Headedness, No Other Respiratory: No Cough, No Dry, No Shortness of breath, No SOB with excertion, No Wheezing, No Hemoptysis, No Pleuritic Pain, No Sputum, No Other Gastrointestinal: Nausea, Vomiting, Abdominal Pain; No Diarrhea, No Constipation, No Melena, No Hematochezia, No Other Genitourinary: No Dysuria, No Frequency, No Incontinence, No Hematuria, No Retention, No Other Musculoskeletal: No other, No neck pain, No shoulder pain, No arm pain, No back pain, No hand pain, No leg pain, No foot pain Skin: No Rash, No Lesions, No Jaundice, No Bruising, No Other Objective Vitals Vital Signs Date Time Temp Pulse Resp B/P (MAP) Pulse Ox O2 Delivery O2 Flow Rate FiO2 04/13/25 13:00 99.4 66 18 147/89 (108) 99 99.4 04/13/25 08:00 Room Air* 0 21 Intake/Output Intake and Output 04/13/25 07:00 Intake Total 540 ml Output Total 400 ml Balance 140 ml Intake Oral 240 ml IV Total 300 ml Output Urine Total 400 ml General Appearance: Alert, Oriented X3, Cooperative Cardiovascular: Regular rate Extremities: No clubbing, No cyanosis Neuro: Normal gait Medications Current Medications Medications Dose Ordered Sig/Baudilio Route Start Time Stop Time Status Last Admin Dose Admin Pantoprazole Sodium 40 mg DAILY IV 04/12/25 10:00 04/13/25 10:13 40 MG Metronidazole 100 ml @ 100 mls/hr Q8HR IV 04/12/25 14:00 04/13/25 05:02 100 MLS/HR Sodium Chloride 10 ml Q8HR IV 04/12/25 14:00 04/13/25 05:03 10 ML Acetaminophen/ Hydrocodone Bitart 1 tab Q4HP PRN PO 04/12/25 08:45 04/12/25 12:28 1 TAB Ondansetron HCl 4 mg Q4HP PRN IV 04/12/25 08:45 04/13/25 11:24 4 MG Docusate Sodium 100 mg BIDPRN PRN PO 04/12/25 08:45 Acetaminophen 650 mg Q6HP PRN PO 04/12/25 08:45 Morphine Sulfate 2 mg Q4HPRN PRN IV 04/12/25 08:45 04/13/25 11:24 2 MG Nitroglycerin 0.4 mg Q5MINP PRN SL 04/12/25 09:30 Morphine Sulfate 2 mg Q30M PRN IV 04/12/25 09:30 Piperacillin Sod/ Tazobactam Sod 100 ml @ 25 mls/hr Q6HR IV 04/12/25 21:30 04/13/25 11:25 25 MLS/HR Laboratory Results Laboratory Tests 04/13/25 05:17 Chemistry Test 04/13/25 05:17 Albumin 4.2 g/dL (3.2-4.8) Calcium Level 9.2 mg/dL (8.7-10.4) Total Protein 7.1 g/dL (5.7-8.2) LFT Test 04/13/25 05:17 Alanine Aminotransferase (ALT) 48 U/L (7-40) H Alkaline Phosphatase 83 U/L (46-116) Aspartate Amino Transferase (AST) 33 U/L (13-40) Total Bilirubin 0.8 mg/dL (0.2-1.0) Urinalysis Test 04/12/25 07:25 Urine Color Colorless (Yellow) Urine Clarity Clear (Clear) Urine pH 7.0 (5.0-9.0) Urine Specific [place] 1.013 (1.001-1.035) Urine Protein Negative (Negative) Urine Ketones 3+ (Negative) H Urine Blood Negative /uL (Negative) Urine Nitrite Negative (Negative) Urine Bilirubin Negative (Negative) Urine Urobilinogen Normal mg/dL (Negative) Urine Leukocyte Esterase Negative /uL (Negative) Urine RBC 3 /hpf (0 - 4) Urine Microscopic WBC 3 /HPF (0-5) Urine Squamous Epithelial Cells Few /hpf (<5) Urine Bacteria None seen /hpf (None Seen) Urine Glucose 3+ mg/dL (Normal) H Urine Test Negative (Negative) Assessment/Plan Assessment/Plan The patient is a 34-year-old female with past medical history of gastritis who presented to [facility] ED with complaint of acute abdominal pain. Patient reports she has been experiencing epigastric abdominal pain, associated burning sensation for the past 2 months, nausea, vomiting, getting worse today that prompted this visit. Patient was seen and evaluated in the ED, laboratory data shows WBC 13.3, platelets 361, sodium 141, potassium 3.0, BUN 8, creatinine 0.66, glucose 152, calcium 9.0, lipase 36, blood pressure 159/92, heart rate 56, temperature 97.9 F, O2 saturation 99% on room. Abdomen/pelvis CT revealing cholelithiasis noted without secondary findings of cholecystitis or biliary obstruction, no hydronephrosis; noted bilateral punctate nonobstructing renal stones measuring up to 0.3 cm in the left lower pole, hepatic steatosis and hepatomegaly, mild diffuse colonic bowel wall thickening, this may be related to underdistention of bowel loops versus mild colitis. Patient was started on IV antibiotic regimen Flagyl, please see medication orders section in the computer. On my assessment, patient denies chest pain, no dizziness, no headache, no diaphoresis, no shortness of breath, no nausea, no vomiting, no fever, no chills. Patient was admitted for further evaluation and medical management. Acute abdominal pain Colitis , acute Suspected gastroenteritis Nausea and vomiting Hyperglycemia Hypokalemia Leukocytosis, unspecified 04/13/2025: Discussed with the patient at the bedside. Patient has a agree to started on clear liquid diet and advance as tolerated. Continue with empirical IV antibiotics. On symptoms improve possible discharge within 24-48 hrs Plan discussed with: Patient My Orders Orders - INDRA SCRUGGS DO Procedure Category Date Status Time Clear Liq Diet DIET 04/13/25 Transmitted Dinner Date of Service: Apr 13, 2025 Billing Provider: INDRA SCRUGGS DO Common Visit Codes: [id number] INP/OBS CARE(HIGH) INDRA SCRUGGS DO Apr 13, 2025 14:42
--- NOTE | 2025-04-13 18:25 | DVHINCON2 ---
Date of service: Apr 13, 2025 Family History: Hypertension G8 MOTHER, Onset:40's - 50 Allergies: Coded Allergies: NO KNOWN ALLERGIES (Unverified , 04/12/25) Home Meds Active Scripts Hydrocodone-Acetaminophen (Hydrocodone Bitartrate/AC 5-325 mg) 1 Tab Tab, 1 TAB PO Q6HP PRN, #20 TAB Prov:STANLEY BENNETT MD 04/12/25 Ondansetron Odt 4MG Tab (ZOFRAN PO) 4 Mg Tb, 4 MG PO TID PRN, #30 TAB ODT TAB-DISSOLVE IN MOUTH, THEN SWALLOW Prov:STANLEY BENNETT MD 04/12/25 Omeprazole Magnesium (Omeprazole) 20 Mg Tab, 20 MG PO DAILY, #30 TAB Prov:STANLEY BENNETT MD 04/12/25 Current Medications Current Medications Medications (Trade) Dose Ordered Sig/Baudilio Route PRN Reason Start Time Stop Time Status Last Admin Piperacillin Sod/ Tazobactam Sod 100 ml @ 25 mls/hr Q6HR IV 04/12/25 21:30 04/13/25 17:46 Vital Signs Vital Signs Date Time Temp Pulse Resp B/P (MAP) Pulse Ox O2 Delivery O2 Flow Rate FiO2 04/13/25 17:00 98.8 79 18 149/96 (113) 99 98.8 04/13/25 08:00 Room Air* 0 21 Labs/Diagnostic Data Labs Test 04/13/25 05:17 04/12/25 07:25 04/12/25 04:29 04/12/25 04:15 Range/Units White Blood Count 21.9 #H 4.4-10.8 10^3/uL Red Blood Count 4.48 4.0-5.20 10^6/uL Hemoglobin 13.8 12.2-16.2 g/dL Hematocrit 39.7 36.0-46.0 % Mean Corpuscular Volume 88.5 80.0-100.0 fL Mean Corpuscular Hemoglobin 30.7 28.0-32.0 pg Mean Corpuscular Hemoglobin Concent 34.7 32.0-36.0 g/dL Red Cell Distribution Width 13.3 11.8-14.3 % Platelet Count 322 140-450 10^3/uL Mean Platelet Volume 9.0 6.9-10.8 fL Neutrophils (%) (Auto) 86.5 H 37.0-80.0 % Lymphocytes (%) (Auto) 4.3 L 10.0-50.0 % Monocytes (%) (Auto) 9.1 0.0-12.0 % Eosinophils (%) (Auto) 0.0 0.0-7.0 % Basophils (%) (Auto) 0.1 0.0-2.0 % Neutrophils # (Auto) 18.9 H 1.6-8.6 10 ^3/uL Lymphocytes # (Auto) 0.9 0.4-5.4 10 ^3/uL Monocytes # (Auto) 2.0 H 0-1.3 10 ^3/uL Eosinophils # (Auto) 0 0-0.8 10 ^3/uL Basophils # (Auto) 0 0-0.2 10 ^3/uL Nucleated Red Blood Cells 0.0 % Sodium Level 141 136-145 mmol/L Potassium Level 3.1 L 3.5-5.1 mmol/L Chloride Level 108 H 98-107 mmol/L Carbon Dioxide Level 22 20-31 mmol/L Anion Gap 11 5-15 Blood Urea Nitrogen 6 L 9-23 mg/dL Creatinine 0.74 0.550-1.02 mg/dL Glomerular Filtration Rate Calc 107 >90 mL/min BUN/Creatinine Ratio 8.1 L 10.0-20.0 Serum Glucose 143 H 74-106 mg/dL Calcium Level 9.2 8.7-10.4 mg/dL Total Bilirubin 0.8 0.2-1.0 mg/dL Aspartate Amino Transferase (AST) 33 13-40 U/L Alanine Aminotransferase (ALT) 48 H 7-40 U/L Alkaline Phosphatase 83 46-116 U/L Total Protein 7.1 5.7-8.2 g/dL Albumin 4.2 3.2-4.8 g/dL Urine Color Colorless Yellow Urine Clarity Clear Clear Urine pH 7.0 5.0-9.0 Urine Specific [place] 1.013 1.001-1.035 Urine Protein Negative Negative Urine Ketones 3+ H Negative Urine Blood Negative Negative /uL Urine Nitrite Negative Negative Urine Bilirubin Negative Negative Urine Urobilinogen Normal Negative mg/dL Urine Leukocyte Esterase Negative Negative /uL Urine RBC 3 0 - 4 /hpf Urine Microscopic WBC 3 0-5 /HPF Urine Squamous Epithelial Cells Few <5 /hpf Urine Bacteria None seen None Seen /hpf Urine Glucose 3+ H Normal mg/dL Urine Test Negative Negative POC Glucose 168 H 70-106 mg/dl Hemoglobin A1c 5.3 <5.7 % A1C Lipase 36 12-53 U/L Assessment [id number] AFEBRILE VSS ABD SOFT NON TENDER CHOLELITHIASIS RESOLVING BILIARY COLIC WBC ELEVATED SOURCE OF INFECTION NOT DETERMINED CT SCAN ABD PELVIS NO AC PROCESS CONTINUE CLOSE OBSERVATION REPEAT LABS AM CONSIDER HIDA SCAN INDICATED BASED ON ONGOING EVAL Plan discussed with: Patient LEANDRA TEJEDA MD Apr 13, 2025 18:25
--- NOTE | 2025-04-13 18:38 | DVHINCON2 ---
DATE OF CONSULTATION: 04/13/2025 HISTORY OF PRESENT ILLNESS: This patient is 34 years old, coming in with right upper quadrant pain, now feeling better. No abdominal pain. No nausea or vomiting. No constipation or diarrhea. No hematemesis or melena. No bleeding per rectum. PAST MEDICAL HISTORY: No diabetes or hypertension. PAST SURGICAL HISTORY: Nothing significant. PHYSICAL EXAMINATION: VITAL SIGNS: Afebrile. Stable signs. HEENT: With no evidence of pallor, cyanosis, or jaundice. NECK: Supple and nontender with no thyromegaly or lymphadenopathy. CHEST AND LUNGS: Clear. HEART: Within normal limits. ABDOMEN: Soft, minimally tender. No rebound. EXTREMITIES: Unremarkable. NEUROLOGIC: Intact. CLINICAL IMPRESSION: She does not appear to have an acute abdomen. She does not appear to have acute cholecystitis, possibly resolving biliary colic. She does have elevated white cell count and the source of the infection is not clear. The CAT scan is not indicating any acute process. PLAN: At this point, she needs close observation, managed conservatively, and consider HIDA scan based upon ongoing evaluation to determine the need for surgery for the gallbladder. MD BRANDON Moy/ROBBIE TID: [id number] RECEIPT: [id number] cc: GIL DE PAZ
[2025-04-14 01:00] VITALS: BP 136/90; PULSE 82; RESP 18; TEMP 100; O2SAT 95
[2025-04-14 05:00] VITALS: BP 137/90; PULSE 86; RESP 18; TEMP 98.9; O2SAT 95
[2025-04-14 07:22] LABS: Hematocrit 37.2 % (36.0-46.0); Hemoglobin 12.9 g/dL (12.2-16.2); Mean Corpuscular Hemoglobin 30.6 pg (28.0-32.0); Mean Corpuscular Volume 88.5 fL (80.0-100.0); Nucleated Red Blood Cells % 0.0 %
[2025-04-14 07:38] LABS: Albumin 3.8 g/dL (3.2-4.8); Alkaline Phosphatase 94 U/L (46-116); Anion Gap 10 (5-15); BUN/Creatinine Ratio 9.8 (10.0-20.0); Calcium 8.9 mg/dL (8.7-10.4); Carbon Dioxide 25 mmol/L (20-31); Chloride 106 mmol/L (98-107); Sodium 141 mmol/L (136-145); Total Protein 6.5 g/dL (5.7-8.2)
[2025-04-14 07:39] LABS: Bilirubin, Total 1.1 mg/dL (0.2-1.0)
[2025-04-14 07:40] LABS: Alanine Aminotransferase 59 U/L (7-40); Blood Urea Nitrogen 6 mg/dL (9-23); Glucose 107 mg/dL (74-106); Potassium 3.0 mmol/L (3.5-5.1)
[2025-04-14 09:00] VITALS: BP 131/93; PULSE 80; RESP 18; TEMP 98.2; O2SAT 97
--- NOTE | 2025-04-14 12:22 | DVHPN2 ---
Subjective The patient is seen and examined at bedside. No complaint today. Tolerating clear liquid diet. Reviewed: Care Plan, H&P, Labs, Medications, Previous Orders, Radiology Changes from previous H/P or p: No Changes General: Per HPI Eyes: No Pain, No Vision change, No Conjunctivae inflammation, No Eyelid inflammation, No Other, No Redness ENT: No Ear pain, No Ear discharge, No Nose pain, No Nose discharge, No Nose congestion, No Mouth pain, No Mouth swelling, No Throat pain, No Throat swelling, No Other Cardiovascular: No Chest Pain, No Palpitations, No Orthopnea, No Paroxysmal Noc. Dyspnea, No Edema, No Lt Headedness, No Other Respiratory: No Cough, No Dry, No Shortness of breath, No SOB with excertion, No Wheezing, No Hemoptysis, No Pleuritic Pain, No Sputum, No Other Gastrointestinal: Nausea, Vomiting, Abdominal Pain; No Diarrhea, No Constipation, No Melena, No Hematochezia, No Other Genitourinary: No Dysuria, No Frequency, No Incontinence, No Hematuria, No Retention, No Other Musculoskeletal: No other, No neck pain, No shoulder pain, No arm pain, No back pain, No hand pain, No leg pain, No foot pain Skin: No Rash, No Lesions, No Jaundice, No Bruising, No Other Objective Vitals Vital Signs Date Time Temp Pulse Resp B/P (MAP) Pulse Ox O2 Delivery O2 Flow Rate FiO2 04/14/25 09:00 98.2 80 18 131/93 (106) 97 98.2 04/14/25 08:00 Room Air* 0 21 Intake/Output Intake and Output 04/14/25 07:00 Intake Total 740 ml Balance 740 ml Intake Oral 240 ml IV Total 500 ml # Voids 1 General Appearance: Alert, Oriented X3, Cooperative, No acute distress HEENT: Atraumatic, PERRLA, EOMI, Mucous membr. moist/pink Lungs: Clear to auscultation, Normal air movement Cardiovascular: Regular rate, Normal S1, Normal S2, No murmurs, Gallops, Rubs Abdomen: Normal bowel sounds, Soft, No tenderness Extremities: No clubbing, No cyanosis, No edema Neuro: Normal gait, Cranial nerves 3-12 NL Psych/Mental Status: Mental status NL Medications Current Medications Medications Dose Ordered Sig/Baudilio Route Start Time Stop Time Status Last Admin Dose Admin Pantoprazole Sodium 40 mg DAILY IV 04/12/25 10:00 04/14/25 10:13 40 MG Metronidazole 100 ml @ 100 mls/hr Q8HR IV 04/12/25 14:00 04/14/25 05:05 100 MLS/HR Sodium Chloride 10 ml Q8HR IV 04/12/25 14:00 04/14/25 06:14 10 ML Acetaminophen/ Hydrocodone Bitart 1 tab Q4HP PRN PO 04/12/25 08:45 04/14/25 10:14 1 TAB Ondansetron HCl 4 mg Q4HP PRN IV 04/12/25 08:45 04/13/25 11:24 4 MG Docusate Sodium 100 mg BIDPRN PRN PO 04/12/25 08:45 Acetaminophen 650 mg Q6HP PRN PO 04/12/25 08:45 Morphine Sulfate 2 mg Q4HPRN PRN IV 04/12/25 08:45 04/13/25 20:09 2 MG Nitroglycerin 0.4 mg Q5MINP PRN SL 04/12/25 09:30 Morphine Sulfate 2 mg Q30M PRN IV 04/12/25 09:30 Piperacillin Sod/ Tazobactam Sod 100 ml @ 25 mls/hr Q6HR IV 04/12/25 21:30 04/14/25 06:15 25 MLS/HR Laboratory Results Laboratory Tests 04/14/25 06:10 Chemistry Test 04/14/25 06:10 Albumin 3.8 g/dL (3.2-4.8) Calcium Level 8.9 mg/dL (8.7-10.4) Total Protein 6.5 g/dL (5.7-8.2) LFT Test 04/14/25 06:10 Alanine Aminotransferase (ALT) 59 U/L (7-40) H Alkaline Phosphatase 94 U/L (46-116) Aspartate Amino Transferase (AST) 35 U/L (13-40) Total Bilirubin 1.1 mg/dL (0.2-1.0) H Urinalysis Test 04/12/25 07:25 Urine Color Colorless (Yellow) Urine Clarity Clear (Clear) Urine pH 7.0 (5.0-9.0) Urine Specific [place] 1.013 (1.001-1.035) Urine Protein Negative (Negative) Urine Ketones 3+ (Negative) H Urine Blood Negative /uL (Negative) Urine Nitrite Negative (Negative) Urine Bilirubin Negative (Negative) Urine Urobilinogen Normal mg/dL (Negative) Urine Leukocyte Esterase Negative /uL (Negative) Urine RBC 3 /hpf (0 - 4) Urine Microscopic WBC 3 /HPF (0-5) Urine Squamous Epithelial Cells Few /hpf (<5) Urine Bacteria None seen /hpf (None Seen) Urine Glucose 3+ mg/dL (Normal) H Urine Test Negative (Negative) Labs and/or images reviewed: Labs reviewed by me Assessment/Plan Assessment/Plan Acute abdominal pain Colitis , acute Suspected gastroenteritis Nausea and vomiting Hyperglycemia Hypokalemia Leukocytosis, unspecified Continuing current management. Continuing with empiric antibiotic. Appreciate surgery input. No surgery intervention for now. Continuing with clear liquid diet. Advance as tolerated. Discharge planning. Continuing Zofran p.r.n. for nausea or vomiting. This medical document was created using an electronic medical record system with [email or web address] direct computerized dictation system. Although this document has been carefully reviewed, there may still be some phonetic and typographical errors. These areas are purely typographical due to imperfections of the software programs, and do not reflect any compromise in the patient's medical care. Plan discussed with: Patient Date of Service: Apr 14, 2025 Billing Provider: MARTIN MONTOYA MD Common Visit Codes: [id number] INP/OBS CARE(HIGH) MARTIN MONTOYA MD Apr 14, 2025 12:22
[2025-04-14 13:00] VITALS: BP 120/85; PULSE 84; RESP 16; TEMP 99.3; O2SAT 95
[2025-04-14 17:00] VITALS: BP 131/92; PULSE 80; RESP 17; TEMP 99.2; O2SAT 97
[2025-04-14 21:00] VITALS: BP 125/82; PULSE 75; RESP 18; TEMP 97.8; O2SAT 95
--- NOTE | 2025-04-14 22:00 | DVHPN2 ---
Progress Note Date Seen: Apr 14, 2025 Medical Necessity Reason Pt with a Central, PICC or Fol: No Objective vital signs Vital Sign Date Time Temp Pulse Resp B/P (MAP) Pulse Ox O2 Delivery O2 Flow Rate FiO2 04/14/25 21:00 97.8 75 18 125/82 (96) 95 97.8 04/14/25 08:00 Room Air* 0 21 Total Intake and Output 04/13/25 04/13/25 04/14/25 15:00 23:00 07:00 Intake Total 100 ml 200 ml 440 ml Balance 100 ml 200 ml 440 ml medications Current Medications Medications Dose Ordered Sig/Baudilio Route Start Time Stop Time Status Last Admin Dose Admin Pantoprazole Sodium 40 mg DAILY IV 04/12/25 10:00 04/14/25 10:13 40 MG Metronidazole 100 ml @ 100 mls/hr Q8HR IV 04/12/25 14:00 04/14/25 15:59 100 MLS/HR Sodium Chloride 10 ml Q8HR IV 04/12/25 14:00 04/14/25 14:00 10 ML Acetaminophen/ Hydrocodone Bitart 1 tab Q4HP PRN PO 04/12/25 08:45 04/14/25 18:05 1 TAB Ondansetron HCl 4 mg Q4HP PRN IV 04/12/25 08:45 04/13/25 11:24 4 MG Docusate Sodium 100 mg BIDPRN PRN PO 04/12/25 08:45 Acetaminophen 650 mg Q6HP PRN PO 04/12/25 08:45 Morphine Sulfate 2 mg Q4HPRN PRN IV 04/12/25 08:45 04/13/25 20:09 2 MG Nitroglycerin 0.4 mg Q5MINP PRN SL 04/12/25 09:30 Morphine Sulfate 2 mg Q30M PRN IV 04/12/25 09:30 Piperacillin Sod/ Tazobactam Sod 100 ml @ 25 mls/hr Q6HR IV 04/12/25 21:30 04/14/25 18:22 25 MLS/HR laboratory and microbiology Laboratory Tests 04/14/25 06:10 Test 04/14/25 06:10 Range/Units Serum Glucose 107 H 74-106 mg/dL Problem List/Assessment/Plan Problem List/Assessment/Plan AFEBRILE VSS ABD SOFT NON TENDER WBC TRENDING DOWN CONTINUE CLOSE OBSERVATION Plan discussed with: Patient LEANDRA TEJEDA MD Apr 14, 2025 21:59
[2025-04-15 01:08] VITALS: BP 125/78; PULSE 79; RESP 18; TEMP 97.5; O2SAT 95
[2025-04-15 05:00] VITALS: BP 123/79; PULSE 82; RESP 18; TEMP 97; O2SAT 95
[2025-04-15] MEDS: ACETAMINOPHEN 325 MG TAB PO PRN (08:13)
--- NOTE | 2025-04-15 08:31 | MEDREC ---
[facility] Intervention Section I [facility] Intervention: Duplication of therapy (PLEASE CONSIDER D/C FLAGYL SINCE BOTH ZOSYN AND FLAGYL COVER FOR ANAEROBE ORGANISMS (DUPLICATE) ) DARLYN LOZOYA PHARMACIST Apr 15, 2025 08:31
[2025-04-15 09:00] VITALS: BP 127/86; PULSE 82; RESP 16; TEMP 98.4; O2SAT 96
--- NOTE | 2025-04-15 09:26 | DVHPN2 ---
Progress Note Date Seen: Apr 15, 2025 Medical Necessity Reason Pt with a Central, PICC or Fol: No Objective vital signs Vital Sign Date Time Temp Pulse Resp B/P (MAP) Pulse Ox O2 Delivery O2 Flow Rate FiO2 04/15/25 09:00 98.4 82 16 127/86 (100) 96 98.4 04/15/25 08:00 Room Air* 0 21 Total Intake and Output 04/14/25 04/14/25 04/15/25 15:00 23:00 07:00 Intake Total 1050 ml 910 ml Balance 1050 ml 910 ml medications Current Medications Medications Dose Ordered Sig/Baudilio Route Start Time Stop Time Status Last Admin Dose Admin Pantoprazole Sodium 40 mg DAILY IV 04/12/25 10:00 04/14/25 10:13 40 MG Metronidazole 100 ml @ 100 mls/hr Q8HR IV 04/12/25 14:00 04/15/25 04:57 100 MLS/HR Sodium Chloride 10 ml Q8HR IV 04/12/25 14:00 04/15/25 05:00 10 ML Acetaminophen/ Hydrocodone Bitart 1 tab Q4HP PRN PO 04/12/25 08:45 04/15/25 06:15 1 TAB Ondansetron HCl 4 mg Q4HP PRN IV 04/12/25 08:45 04/13/25 11:24 4 MG Docusate Sodium 100 mg BIDPRN PRN PO 04/12/25 08:45 Acetaminophen 650 mg Q6HP PRN PO 04/12/25 08:45 04/15/25 08:13 650 MG Morphine Sulfate 2 mg Q4HPRN PRN IV 04/12/25 08:45 04/13/25 20:09 2 MG Nitroglycerin 0.4 mg Q5MINP PRN SL 04/12/25 09:30 Morphine Sulfate 2 mg Q30M PRN IV 04/12/25 09:30 Piperacillin Sod/ Tazobactam Sod 100 ml @ 25 mls/hr Q6HR IV 04/12/25 21:30 04/15/25 06:05 25 MLS/HR laboratory and microbiology Laboratory Tests 04/14/25 06:10 Test 04/14/25 06:10 Range/Units Serum Glucose 107 H 74-106 mg/dL Problem List/Assessment/Plan Problem List/Assessment/Plan AFEBRILE VSS ABD SOFT NON TENDER WBC TRENDING DOWN CONTINUE CLOSE OBSERVATION REPEAT CBC CMP NURSE AT BEDSIDE Plan discussed with: Patient LEANDRA TEJEDA MD Apr 15, 2025 09:26
[2025-04-15 11:10] LABS: Hematocrit 34.5 % (36.0-46.0); Hemoglobin 12.1 g/dL (12.2-16.2); Mean Corpuscular Hemoglobin 31.0 pg (28.0-32.0); Mean Corpuscular Volume 88.4 fL (80.0-100.0); Nucleated Red Blood Cells % 0.0 %
[2025-04-15 11:22] LABS: Alanine Aminotransferase 45 U/L (7-40); Albumin 3.5 g/dL (3.2-4.8); Alkaline Phosphatase 112 U/L (46-116); Anion Gap 7 (5-15); BUN/Creatinine Ratio 11.9 (10.0-20.0); Bilirubin, Total 0.8 mg/dL (0.2-1.0); Blood Urea Nitrogen 7 mg/dL (9-23); Calcium 8.8 mg/dL (8.7-10.4); Carbon Dioxide 26 mmol/L (20-31); Chloride 106 mmol/L (98-107); Glucose 116 mg/dL (74-106); Potassium 2.9 mmol/L (3.5-5.1); Sodium 139 mmol/L (136-145); Total Protein 6.2 g/dL (5.7-8.2)
--- NOTE | 2025-04-15 12:17 | DVHPN2 ---
Subjective The patient is seen and examined at bedside. No complaint today. Tolerating clear liquid diet. Reviewed: Care Plan, H&P, Labs, Medications, Previous Orders, Radiology Changes from previous H/P or p: No Changes General: Per HPI Eyes: No Pain, No Vision change, No Conjunctivae inflammation, No Eyelid inflammation, No Other, No Redness ENT: No Ear pain, No Ear discharge, No Nose pain, No Nose discharge, No Nose congestion, No Mouth pain, No Mouth swelling, No Throat pain, No Throat swelling, No Other Cardiovascular: No Chest Pain, No Palpitations, No Orthopnea, No Paroxysmal Noc. Dyspnea, No Edema, No Lt Headedness, No Other Respiratory: No Cough, No Dry, No Shortness of breath, No SOB with excertion, No Wheezing, No Hemoptysis, No Pleuritic Pain, No Sputum, No Other Gastrointestinal: Nausea, Vomiting, Abdominal Pain; No Diarrhea, No Constipation, No Melena, No Hematochezia, No Other Genitourinary: No Dysuria, No Frequency, No Incontinence, No Hematuria, No Retention, No Other Musculoskeletal: No other, No neck pain, No shoulder pain, No arm pain, No back pain, No hand pain, No leg pain, No foot pain Skin: No Rash, No Lesions, No Jaundice, No Bruising, No Other Objective Vitals Vital Signs Date Time Temp Pulse Resp B/P (MAP) Pulse Ox O2 Delivery O2 Flow Rate FiO2 04/15/25 09:00 98.4 82 16 127/86 (100) 96 98.4 04/15/25 08:00 Room Air* 0 21 Intake/Output Intake and Output 04/15/25 07:00 Intake Total 1960 ml Balance 1960 ml Intake Oral 1660 ml IV Total 300 ml # Voids 3 General Appearance: Alert, Oriented X3, Cooperative, No acute distress HEENT: Atraumatic, PERRLA, EOMI, Mucous membr. moist/pink Lungs: Clear to auscultation, Normal air movement Cardiovascular: Regular rate, Normal S1, Normal S2, No murmurs, Gallops, Rubs Abdomen: Normal bowel sounds, Soft, No tenderness Extremities: No clubbing, No cyanosis, No edema Neuro: Normal gait, Cranial nerves 3-12 NL Psych/Mental Status: Mental status NL Medications Current Medications Medications Dose Ordered Sig/Baudilio Route Start Time Stop Time Status Last Admin Dose Admin Pantoprazole Sodium 40 mg DAILY IV 04/12/25 10:00 04/15/25 09:48 40 MG Metronidazole 100 ml @ 100 mls/hr Q8HR IV 04/12/25 14:00 04/15/25 04:57 100 MLS/HR Sodium Chloride 10 ml Q8HR IV 04/12/25 14:00 04/15/25 05:00 10 ML Acetaminophen/ Hydrocodone Bitart 1 tab Q4HP PRN PO 04/12/25 08:45 04/15/25 06:15 1 TAB Ondansetron HCl 4 mg Q4HP PRN IV 04/12/25 08:45 04/13/25 11:24 4 MG Docusate Sodium 100 mg BIDPRN PRN PO 04/12/25 08:45 Acetaminophen 650 mg Q6HP PRN PO 04/12/25 08:45 04/15/25 08:13 650 MG Morphine Sulfate 2 mg Q4HPRN PRN IV 04/12/25 08:45 04/13/25 20:09 2 MG Nitroglycerin 0.4 mg Q5MINP PRN SL 04/12/25 09:30 Morphine Sulfate 2 mg Q30M PRN IV 04/12/25 09:30 Piperacillin Sod/ Tazobactam Sod 100 ml @ 25 mls/hr Q6HR IV 04/12/25 21:30 04/15/25 12:10 25 MLS/HR Laboratory Results Laboratory Tests 04/15/25 10:45 Chemistry Test 04/15/25 10:45 Albumin 3.5 g/dL (3.2-4.8) Calcium Level 8.8 mg/dL (8.7-10.4) Total Protein 6.2 g/dL (5.7-8.2) LFT Test 04/15/25 10:45 Alanine Aminotransferase (ALT) 45 U/L (7-40) H Alkaline Phosphatase 112 U/L (46-116) Aspartate Amino Transferase (AST) 31 U/L (13-40) Total Bilirubin 0.8 mg/dL (0.2-1.0) Urinalysis Test 04/12/25 07:25 Urine Color Colorless (Yellow) Urine Clarity Clear (Clear) Urine pH 7.0 (5.0-9.0) Urine Specific [place] 1.013 (1.001-1.035) Urine Protein Negative (Negative) Urine Ketones 3+ (Negative) H Urine Blood Negative /uL (Negative) Urine Nitrite Negative (Negative) Urine Bilirubin Negative (Negative) Urine Urobilinogen Normal mg/dL (Negative) Urine Leukocyte Esterase Negative /uL (Negative) Urine RBC 3 /hpf (0 - 4) Urine Microscopic WBC 3 /HPF (0-5) Urine Squamous Epithelial Cells Few /hpf (<5) Urine Bacteria None seen /hpf (None Seen) Urine Glucose 3+ mg/dL (Normal) H Urine Test Negative (Negative) Labs and/or images reviewed: Labs reviewed by me Assessment/Plan Assessment/Plan Acute abdominal pain Colitis , acute Suspected gastroenteritis Nausea and vomiting Hyperglycemia Hypokalemia Leukocytosis, unspecified Continuing current management. Continuing with empiric antibiotic. Appreciate surgery input. No surgery intervention for now. Continuing with clear liquid diet. Advance as tolerated. Discharge planning. Continuing Zofran p.r.n. for nausea or vomiting. Appreciate surgeon input. This medical document was created using an electronic medical record system with [employer] direct computerized dictation system. Although this document has been carefully reviewed, there may still be some phonetic and typographical errors. These areas are purely typographical due to imperfections of the software programs, and do not reflect any compromise in the patient's medical care. Plan discussed with: Patient Date of Service: Apr 15, 2025 Billing Provider: MARTIN MONTOYA MD Common Visit Codes: [id number] INP/OBS CARE(HIGH) MARTIN MONTOYA MD Apr 15, 2025 12:17
[2025-04-15 13:00] VITALS: BP 132/87; PULSE 90; RESP 18; TEMP 98.3; O2SAT 97
[2025-04-15 16:34] VITALS: BP 133/88; PULSE 84; RESP 18; TEMP 99.8; O2SAT 99
[2025-04-15 21:00] VITALS: BP 136/65; PULSE 80; RESP 19; TEMP 98.9; O2SAT 99
[2025-04-16 01:00] VITALS: BP 130/50; PULSE 77; RESP 18; TEMP 98.6; O2SAT 96
[2025-04-16 05:00] VITALS: BP 127/84; PULSE 77; RESP 18; TEMP 98.7; O2SAT 96
[2025-04-16 07:57] LABS: Hematocrit 35.6 % (36.0-46.0); Hemoglobin 12.3 g/dL (12.2-16.2); Mean Corpuscular Hemoglobin 30.6 pg (28.0-32.0); Mean Corpuscular Volume 88.7 fL (80.0-100.0); Nucleated Red Blood Cells % 0.0 %
[2025-04-16 08:00] VITALS: RESP 18; O2SAT 96
[2025-04-16 08:20] LABS: Chloride 104 mmol/L (98-107); Sodium 140 mmol/L (136-145)
[2025-04-16 08:21] LABS: Anion Gap 10 (5-15); Calcium 8.8 mg/dL (8.7-10.4); Carbon Dioxide 26 mmol/L (20-31)
[2025-04-16 08:26] LABS: BUN/Creatinine Ratio 11.3 (10.0-20.0); Glucose 94 mg/dL (74-106)
[2025-04-16 08:37] LABS: Blood Urea Nitrogen 6 mg/dL (9-23); Potassium 3.0 mmol/L (3.5-5.1)
[2025-04-16 09:35] VITALS: BP 122/89; PULSE 79; RESP 16; TEMP 98.9; O2SAT 96
[2025-04-16 11:27] LABS: Alanine Aminotransferase 36 U/L (7-40); Albumin 3.5 g/dL (3.2-4.8); Alkaline Phosphatase 115 U/L (46-116); Anion Gap 10 (5-15); BUN/Creatinine Ratio 11.5 (10.0-20.0); Bilirubin, Total 0.7 mg/dL (0.2-1.0); Blood Urea Nitrogen 6 mg/dL (9-23); Calcium 8.8 mg/dL (8.7-10.4); Carbon Dioxide 25 mmol/L (20-31); Chloride 105 mmol/L (98-107); Glucose 92 mg/dL (74-106); Potassium 3.1 mmol/L (3.5-5.1); Sodium 140 mmol/L (136-145); Total Protein 6.1 g/dL (5.7-8.2)
[2025-04-16] MEDS: POTASSIUM CHL 20 Meq TABLET PO ONE (11:32)
[2025-04-16 13:00] VITALS: BP 136/88; PULSE 85; RESP 16; TEMP 99.3; O2SAT 98
--- NOTE | 2025-04-16 13:17 | DVHPN2 ---
Subjective The patient is seen and examined at bedside. No complaint today. Tolerating clear liquid diet. Reviewed: Care Plan, H&P, Labs, Medications, Previous Orders, Radiology General: Per HPI Eyes: No Pain, No Vision change, No Conjunctivae inflammation, No Eyelid inflammation, No Other, No Redness ENT: No Ear pain, No Ear discharge, No Nose pain, No Nose discharge, No Nose congestion, No Mouth pain, No Mouth swelling, No Throat pain, No Throat swelling, No Other Cardiovascular: No Chest Pain, No Palpitations, No Orthopnea, No Paroxysmal Noc. Dyspnea, No Edema, No Lt Headedness, No Other Respiratory: No Cough, No Dry, No Shortness of breath, No SOB with excertion, No Wheezing, No Hemoptysis, No Pleuritic Pain, No Sputum, No Other Gastrointestinal: Nausea, Vomiting, Abdominal Pain; No Diarrhea, No Constipation, No Melena, No Hematochezia, No Other Genitourinary: No Dysuria, No Frequency, No Incontinence, No Hematuria, No Retention, No Other Musculoskeletal: No other, No neck pain, No shoulder pain, No arm pain, No back pain, No hand pain, No leg pain, No foot pain Skin: No Rash, No Lesions, No Jaundice, No Bruising, No Other Objective Vitals Vital Signs Date Time Temp Pulse Resp B/P (MAP) Pulse Ox O2 Delivery O2 Flow Rate FiO2 04/16/25 09:35 98.9 79 16 122/89 (100) 96 98.9 04/16/25 08:00 Room Air* 0 21 Intake/Output Intake and Output 04/16/25 07:00 Intake Total 2550 ml Balance 2550 ml Intake Oral 1950 ml IV Total 600 ml # Voids 3 General Appearance: Alert, Oriented X3, Cooperative, No acute distress HEENT: Atraumatic, PERRLA, EOMI, Mucous membr. moist/pink Lungs: Clear to auscultation, Normal air movement Cardiovascular: Regular rate, Normal S1, Normal S2, No murmurs, Gallops, Rubs Abdomen: Normal bowel sounds, Soft, No tenderness Extremities: No clubbing, No cyanosis, No edema Neuro: Normal gait, Cranial nerves 3-12 NL Psych/Mental Status: Mental status NL Medications Current Medications Medications Dose Ordered Sig/Baudilio Route Start Time Stop Time Status Last Admin Dose Admin Pantoprazole Sodium 40 mg DAILY IV 04/12/25 10:00 04/16/25 09:32 40 MG Metronidazole 100 ml @ 100 mls/hr Q8HR IV 04/12/25 14:00 04/16/25 04:59 100 MLS/HR Sodium Chloride 10 ml Q8HR IV 04/12/25 14:00 04/16/25 06:11 10 ML Acetaminophen/ Hydrocodone Bitart 1 tab Q4HP PRN PO 04/12/25 08:45 04/16/25 05:25 1 TAB Ondansetron HCl 4 mg Q4HP PRN IV 04/12/25 08:45 04/13/25 11:24 4 MG Docusate Sodium 100 mg BIDPRN PRN PO 04/12/25 08:45 Acetaminophen 650 mg Q6HP PRN PO 04/12/25 08:45 04/15/25 08:13 650 MG Morphine Sulfate 2 mg Q4HPRN PRN IV 04/12/25 08:45 04/15/25 17:36 2 MG Nitroglycerin 0.4 mg Q5MINP PRN SL 04/12/25 09:30 Morphine Sulfate 2 mg Q30M PRN IV 04/12/25 09:30 Piperacillin Sod/ Tazobactam Sod 100 ml @ 25 mls/hr Q6HR IV 04/12/25 21:30 04/16/25 11:32 25 MLS/HR Laboratory Results Laboratory Tests 04/16/25 07:37 04/16/25 10:53 Chemistry Test 04/16/25 07:37 04/16/25 10:53 Calcium Level 8.8 mg/dL (8.7-10.4) 8.8 mg/dL (8.7-10.4) Albumin 3.5 g/dL (3.2-4.8) Total Protein 6.1 g/dL (5.7-8.2) LFT Test 04/16/25 10:53 Alanine Aminotransferase (ALT) 36 U/L (7-40) Alkaline Phosphatase 115 U/L (46-116) Aspartate Amino Transferase (AST) 19 U/L (13-40) Total Bilirubin 0.7 mg/dL (0.2-1.0) Urinalysis Test 04/12/25 07:25 Urine Color Colorless (Yellow) Urine Clarity Clear (Clear) Urine pH 7.0 (5.0-9.0) Urine Specific [place] 1.013 (1.001-1.035) Urine Protein Negative (Negative) Urine Ketones 3+ (Negative) H Urine Blood Negative /uL (Negative) Urine Nitrite Negative (Negative) Urine Bilirubin Negative (Negative) Urine Urobilinogen Normal mg/dL (Negative) Urine Leukocyte Esterase Negative /uL (Negative) Urine RBC 3 /hpf (0 - 4) Urine Microscopic WBC 3 /HPF (0-5) Urine Squamous Epithelial Cells Few /hpf (<5) Urine Bacteria None seen /hpf (None Seen) Urine Glucose 3+ mg/dL (Normal) H Urine Test Negative (Negative) Assessment/Plan Assessment/Plan Acute abdominal pain Colitis , acute Suspected gastroenteritis Nausea and vomiting Hyperglycemia Hypokalemia Leukocytosis, unspecified Continuing current management. Continuing with empiric antibiotic. Appreciate surgery input. No surgery intervention for now. Continuing with clear liquid diet. Advance as tolerated. Discharge planning. Continuing Zofran p.r.n. for nausea or vomiting. Appreciate surgeon input. This medical document was created using an electronic medical record system with [employer] [employer] direct computerized dictation system. Although this document has been carefully reviewed, there may still be some phonetic and typographical errors. These areas are purely typographical due to imperfections of the software programs, and do not reflect any compromise in the patient's medical care. My Orders Orders - MARTIN MONTOYA MD Procedure Category Date Status Time Complete Blood Count LAB 04/17/25 Verified 05:00 Complete Blood Count LAB 04/18/25 Verified 05:00 Basic Metabolic Panel LAB 04/17/25 Verified 05:00 Basic Metabolic Panel LAB 04/18/25 Verified 05:00 MARTIN MONTOYA MD Apr 16, 2025 13:17
[2025-04-16] MEDS ORDERED: LEVO500T91 PO (13:31)
[2025-04-16] MEDS ORDERED: METR-344 PO (13:31)
--- NOTE | 2025-04-16 13:32 | DVHDS2 ---
Discharge Summary Date of Admission Apr 12, 2025 at 09:23 Date of Discharge: Apr 16, 2025 Admitting Diagnosis Acute abdominal pain Colitis , acute Suspected gastroenteritis Nausea and vomiting Hyperglycemia Hypokalemia Leukocytosis, unspecified Labs/Diagnostic Data: Laboratory Results Test 04/16/25 10:53 04/16/25 07:37 04/12/25 07:25 04/12/25 04:29 Sodium Level 140 mmol/L (136-145) Potassium Level 3.1 mmol/L (3.5-5.1) Chloride Level 105 mmol/L (98-107) Carbon Dioxide Level 25 mmol/L (20-31) Anion Gap 10 (5-15) Blood Urea Nitrogen 6 mg/dL (9-23) Creatinine 0.52 mg/dL (0.550-1.02) Glomerular Filtration Rate Calc 123 mL/min (>90) BUN/Creatinine Ratio 11.5 (10.0-20.0) Serum Glucose 92 mg/dL (74-106) Calcium Level 8.8 mg/dL (8.7-10.4) Total Bilirubin 0.7 mg/dL (0.2-1.0) Aspartate Amino Transferase (AST) 19 U/L (13-40) Alanine Aminotransferase (ALT) 36 U/L (7-40) Alkaline Phosphatase 115 U/L (46-116) Total Protein 6.1 g/dL (5.7-8.2) Albumin 3.5 g/dL (3.2-4.8) White Blood Count 14.4 10^3/uL (4.4-10.8) Red Blood Count 4.02 10^6/uL (4.0-5.20) Hemoglobin 12.3 g/dL (12.2-16.2) Hematocrit 35.6 % (36.0-46.0) Mean Corpuscular Volume 88.7 fL (80.0-100.0) Mean Corpuscular Hemoglobin 30.6 pg (28.0-32.0) Mean Corpuscular Hemoglobin Concent 34.5 g/dL (32.0-36.0) Red Cell Distribution Width 13.1 % (11.8-14.3) Platelet Count 321 10^3/uL (140-450) Mean Platelet Volume 8.3 fL (6.9-10.8) Neutrophils (%) (Auto) 81.1 % (37.0-80.0) Lymphocytes (%) (Auto) 10.8 % (10.0-50.0) Monocytes (%) (Auto) 7.2 % (0.0-12.0) Eosinophils (%) (Auto) 0.7 % (0.0-7.0) Basophils (%) (Auto) 0.2 % (0.0-2.0) Neutrophils # (Auto) 11.7 10 ^3/uL (1.6-8.6) Lymphocytes # (Auto) 1.6 10 ^3/uL (0.4-5.4) Monocytes # (Auto) 1.0 10 ^3/uL (0-1.3) Eosinophils # (Auto) 0.1 10 ^3/uL (0-0.8) Basophils # (Auto) 0 10 ^3/uL (0-0.2) Nucleated Red Blood Cells 0.0 % Urine Color Colorless (Yellow) Urine Clarity Clear (Clear) Urine pH 7.0 (5.0-9.0) Urine Specific [place] 1.013 (1.001-1.035) Urine Protein Negative (Negative) Urine Ketones 3+ (Negative) Urine Blood Negative /uL (Negative) Urine Nitrite Negative (Negative) Urine Bilirubin Negative (Negative) Urine Urobilinogen Normal mg/dL (Negative) Urine Leukocyte Esterase Negative /uL (Negative) Urine RBC 3 /hpf (0 - 4) Urine Microscopic WBC 3 /HPF (0-5) Urine Squamous Epithelial Cells Few /hpf (<5) Urine Bacteria None seen /hpf (None Seen) Urine Glucose 3+ mg/dL (Normal) Urine Test Negative (Negative) POC Glucose 168 mg/dl (70-106) Test 04/12/25 04:15 Hemoglobin A1c 5.3 % A1C (<5.7) Lipase 36 U/L (12-53) Other Laboratory Tests 04/16/25 10:53 04/16/25 07:37 Brief Hx & Hospital Course: This is a 34 years old female with past medical history of gastritis come to emergency department because of acute abdominal pain. She stated that her pain is in a epigastric area, associated with burning sensation for two months. Pain associated with nausea, vomiting in his worse so the patient had to come to emergency department on the day of admission.Abdomen/pelvis CT revealing cholelithiasis noted without secondary findings of cholecystitis or biliary obstruction, no hydronephrosis; noted bilateral punctate nonobstructing renal stones measuring up to 0.3 cm in the left lower pole, hepatic steatosis and hepatomegaly, mild diffuse colonic bowel wall thickening, this may be related to underdistention of bowel loops versus mild colitis. Dr. Charles, surgeon see the patient. He recommend to monitor the white cell count. If the white cell count continuing to trending down and patient tolerated diet he recommended outpatient follow up for elective cholecystectomy. So her WBC continuing to trending down with IV antibiotic Rocephin and Flagyl. Today is 14.4. Dr. Charles recommend outpatient elective cholecystectomy. The patient able to tolerate diet. I am discharge her home today. Advised her to follow up with primary care physician 1-2 weeks. Follow up with Dr. Cahrles as outpatient to set up the elective cholecystectomy per schedule. Physical exam: HEENT: Normocephalic atraumatic pupils equal react to light and accommodation. Extraocular muscles intact, conjunctiva pink, oropharynx moist, no thrush, no exudate. Lymphatic: No lymphadenopathy Cardiovascular exam: S1, S2 was heard. No murmurs, rubs, gallops Lung: Clear on auscultation bilaterally, no wheeze, rale, rhonchi. GI: Abdominal soft, nondistended, nontenderness, positive bowel sounds. Extremity: No crepitus, cyanosis, edema. Pedal pulses present bilateral. Full range of motion. Skin: Normal turgor, no rash. Psych: Alert, oriented x3. Neurology: No focal deficits, cranial nerve II to XII grossly intact. This medical document was created using an electronic medical record system with [employer] direct computerized dictation system. Although this document has been carefully reviewed, there may still be some phonetic and typographical errors. These areas are purely typographical due to imperfections of the software programs, and do not reflect any compromise in the patient's medical care. Condition at Discharge: Stable Final Diagnosis/Problems List Acute abdominal pain Colitis , acute Suspected gastroenteritis Nausea and vomiting Hyperglycemia Hypokalemia Leukocytosis, unspecified Discharge Disposition: Home Discharge Instruct/Medications Diet: Regular Activity: No Restrictions, As Tolerated Follow Up/Referral: PCP 1-[address] CHARLES, SURGEON PER SCHEDULE FOR OUTPATIENT ELECTIVE CHOLECYSTECTOMY Scheduled Levofloxacin Hemihydrate (Levaquin 500 Mg), 1 TAB PO DAILY Metronidazole (Flagyl), 1 TAB PO TID Omeprazole Magnesium (Omeprazole), 20 MG PO DAILY Scheduled PRN Hydrocodone-Acetaminophen (Hydrocodone Bitartrate/AC 5-325 mg), 1 TAB PO Q6HP PRN Ondansetron Odt 4MG Tab (Zofran Po), 4 MG PO TID PRN Discharge Statement: "Patient was advised to return to the ER or call 911 if any headaches, dizziness, shortness of breath, chest pain, abdominal pain, bleeding, fevers, or worsening of medical condition. Patient was counseled about treatment plan, medications, possible side effects, patientverbalized understanding. All questions were answered to the best of my ability. This discharge took greater then 30 minutes in planning, reviewing documentation, counseling the patient, and discussing with other team members." ASSESSMENT ASSESSMENT Assessment CHOLELITHIASIS/CHOLECYSTITIS Date of Service: Apr 16, 2025 Billing Provider: MARTIN MONTOYA MD Common Visit Codes: 74923-ORQ/OBS DISCH DAY >30min MARTIN MONTOYA MD Apr 16, 2025 13:32
[2025-04-16 15:09] VITALS: TEMP 37.4
== END 2025-04-16 16:45 | disposition home or self-care (01) | DRG 248 ==
LOC: ER 03:57 → OVERFLOW 09:23 → WEST WING 17:19
PROVIDERS: ADMIT Internal Medicine; ATTEND Internal Medicine
DX: A04.9 Bacterial intestinal infection, unspecified (principal); R65.10 Systemic inflammatory response syndrome (SIRS) of non-infectious origin without acute organ dysfunction; K80.60 Calculus of gallbladder and bile duct with cholecystitis, unspecified, without obstruction; K76.0 Fatty (change of) liver, not elsewhere classified; D72.829 Elevated white blood cell count, unspecified; E87.6 Hypokalemia; R73.9 Hyperglycemia, unspecified; Z82.49 Family history of ischemic heart disease and other diseases of the circulatory system
CPT/HCPCS: 36415; 74176; 80048; 80053; 81001; 81025; 82962; 83036; 83690; 85025; 96361; 96374; 96375; G0378; J1885; J2405; J2470; J2543; J3490